=== PATIENT | female | born 1945 | race African-American/Black ===

== ENCOUNTER 2016-12-31 17:40 | Emergency (ER) | payer MEDICARE, OTHER ==
[~2016-12-31] VITALS: Ht 175.3 cm; Wt 77.3 kg
[~2016-12-31 17:40] MED LIST: PHEN100C23 PO; TOPI50TA PO
[2016-12-31 19:47] LABS: BASOPHILS # (AUTO) 0.03 K/uL (0.00-0.20); BASOPHILS % (AUTO) 0.3 % (0.0-2.0); EOSINOPHILS # (AUTO) 0.11 K/uL (0.00-0.70); EOSINOPHILS % (AUTO) 1.29 % (1.0-6.0); LYMPHOCYTES # (AUTO) 2.7 K/uL (1.0-4.8); LYMPHOCYTES % (AUTO) 32.1 % (22.0-44.0); MEAN CORPUSCULAR HEMOGLOBIN 31.5 pg (26.0-34.0); MEAN CORPUSCULAR HGB CONC 33.3 G/dL (31.0-37.0); MEAN CORPUSCULAR VOLUME 95 fL (80-100); MONOCYTES # (AUTO) 0.4 K/uL (0.1-1.0); NEUTROPHILS # (AUTO) 5.2 K/uL (1.8-7.7); NEUTROPHILS % (AUTO) 61.3 % (40.0-70.0); PLATELET COUNT (AUTO) 232 K/uL (150-450); RED BLOOD CELL COUNT(AUTO) 4.12 MIL/uL (4.00-5.20); RED CELL DISTRIBUTION WIDTH 14.3 % (11.5-14.5)
[2016-12-31 19:55] LABS: ANION GAP 6 mmol/L (8-16); CALCIUM, TOTAL 8.8 mg/dL (8.8-10.5); CARBON DIOXIDE 25 mmol/L (22-29); CHLORIDE 109 mmol/L (98-107); CREATININE 1.07 mg/dL (0.60-1.30); GLOMERULAR FILTR. RATE CALC > 60 mL/min (>60); GLUCOSE,RANDOM 91 mg/dL (70-110); SODIUM SERUM 140 mmol/L (136-145); UREA NITROGEN, BLOOD 16 mg/dL (7-18)
[2016-12-31 20:02] LABS: ALANINE AMINOTRANSFERASE 27 U/L (12-78); ALBUMIN 3.6 g/dL (3.4-5.0); ALKALINE PHOSPHATASE 106 U/L (46-116); ASPARTATE AMINOTRANSFERASE 20 U/L (15-37); BILIRUBIN,TOTAL 0.2 mg/dL (0.1-1.0); TOTAL PROTEIN, SERUM 7.4 g/dL (6.4-8.2)
[2016-12-31 20:18] LABS: PHENYTOIN (DILANTIN) < 0.5 mcg/mL (10.0-20.0)
[2016-12-31 20:39] VITALS: BP 123/77
== END 2016-12-31 20:45 | disposition home or self-care (01) ==
LOC: EMS 17:41
DX: M54.12 Radiculopathy, cervical region (principal); F17.210 Nicotine dependence, cigarettes, uncomplicated
CPT/HCPCS: 72125; 99285

== ENCOUNTER 2018-09-02 10:47 | Emergency (ER) | payer MEDICARE, OTHER ==
[~2018-09-02] VITALS: Ht 165.1 cm; Wt 80.9 kg
[2018-09-02 20:40] VITALS: BP 134/84
== END 2018-09-02 21:00 | disposition home or self-care (01) ==
LOC: EMS 10:48
DX: F43.20 Adjustment disorder, unspecified (principal); F20.9 Schizophrenia, unspecified; F19.10 Other psychoactive substance abuse, uncomplicated; F17.210 Nicotine dependence, cigarettes, uncomplicated; Z59.0 Homelessness; Z79.899 Other long term (current) drug therapy

== ENCOUNTER 2024-06-21 22:27 | Emergency (ER) | payer OTHER ==
[~2024-06-21] VITALS: Ht 162.6 cm; Wt 79.5 kg
[2024-06-21 23:28] VITALS: BP 150/98; PULSE 95; RESP 18; TEMP 98.005280; O2SAT 97
== END 2024-06-22 02:05 | disposition home or self-care (01) ==
LOC: EMS 22:32
DX: L84 Corns and callosities (principal); I10 Essential (primary) hypertension; F17.210 Nicotine dependence, cigarettes, uncomplicated; Z79.899 Other long term (current) drug therapy
CPT/HCPCS: 99283

== ENCOUNTER 2024-12-01 02:14 | Emergency (ER) | payer OTHER ==
[~2024-12-01] VITALS: Ht 160 cm; Wt 77.3 kg
[2024-12-01 02:27] VITALS: TEMP 97.5
[2024-12-01] MEDS ORDERED: HYDR25TA83 PO (02:53)
[2024-12-01 03:16] VITALS: BP 119/76; PULSE 78; RESP 15; O2SAT 97
== END 2024-12-01 03:19 | disposition home or self-care (01) ==
LOC: EMS 02:31
DX: L29.9 Pruritus, unspecified (principal); F17.210 Nicotine dependence, cigarettes, uncomplicated; Z79.899 Other long term (current) drug therapy
CPT/HCPCS: 99283; J8540

== ENCOUNTER 2024-12-07 23:41 | Emergency (ER) | payer OTHER ==
[~2024-12-07] VITALS: Ht 162.6 cm; Wt 77.2 kg
[~2024-12-07 23:41] MED LIST changes: +HYDR25TA83 PO
[2024-12-07 23:56] VITALS: BP 145/74; PULSE 84; RESP 18; TEMP 97.3; O2SAT 96
== END 2024-12-08 01:15 | disposition left against medical advice (07) ==
LOC: EMS 12-08 01:04
DX: L29.9 Pruritus, unspecified (principal); Z76.0 Encounter for issue of repeat prescription; Z53.21 Procedure and treatment not carried out due to patient leaving prior to being seen by health care provider
CPT/HCPCS: 99281; Z7502